=== PATIENT | female | born 1995 | race Caucasian/White ===

== ENCOUNTER 2017-02-26 22:59 | Emergency (ER) | payer BC ==
[~2017-02-26] VITALS: Wt 78.6 kg
[~2017-02-26 22:59] MED LIST: BIRTH CONTROL PO
[2017-02-27] MEDS ORDERED: IBUPROFEN 800 MG TAB PO ONE (01:00)
--- NOTE | 2017-02-27 01:18 | RADRPT ---
PROCEDURE: LEFT SHOULDER CLINICAL INDICATION: 21-year-old female with left shoulder pain. TECHNIQUE: Three views of the left shoulder were obtained. The images reviewed on a PACS workstati on. COMPARISON: None. FINDINGS: No evidence of fracture or dislocation is seen. The glenohumeral and acromioclavicular joint spaces appear preserved. Limited views of the clavicle and thorax are unremarkable. IMPRESSION: Unremarkable left shoulder radiographs. .Shay Castle MD, MD Date Time Electronically viewed and signed by .Shay Castle MD, MD on 02/27/2017 01:18 .M/
--- NOTE | 2017-02-27 01:46 | ERD ---
ER Documentation Chief Complaint Date/Time DATE: 02/27/17 TIME: 01:46 Chief Complaint l. shoulder pain s/p trauma HPI This is a 21-year-old female presents to the emergency department today complaining of left shoulder pain. Patient states that she is a caregiver and med tech at [employer] and was lifting a patient that got combative and patient pushed her shoulder backwards. States this happened on February 17. States she has reported this to her boss but nothing has been done. States that she had similar previous trauma last year and had seen a Worker's Comp. doctor. Denies any fevers or chills. ROS All systems reviewed and are negative except as per history of present illness. Medications Home Meds Active Scripts Acetaminophen* (Tylophen*) 500 Mg Capsule, 1 CAP PO Q6H Y for PAIN AND OR ELEVATED TEMP, #30 CAP Prov:JANNETH FORBES PA-C 02/27/17 Naproxen* (Naprosyn*) 500 Mg Tablet, 500 MG PO BID Y for PAIN AND/OR INFLAMMATION, #30 TAB Prov:JANNETH FORBES PA-C 02/27/17 Reported Medications [ Control ] No Conflict Check, PO DAILY 03/26/14 Allergies Allergies: Coded Allergies: No Known Allergy (Unverified , 03/26/14) PMhx/Soc Medical and Surgical Hx: pt denies Medical Hx History of Surgery: Yes (bunion removal) Anesthesia Reaction: No Hx Neurological Disorder: No Hx Respiratory Disorders: No Hx Cardiac Disorders: No Hx Psychiatric Problems: No Hx Miscellaneous Medical Probl: No Hx Alcohol Use: Yes Hx Substance Use: No Hx Tobacco Use: No Smoking Status: Never smoker Physical Exam Vitals Vital Signs Date Time Temp Pulse Resp B/P Pulse Ox O2 Delivery O2 Flow Rate FiO2 02/26/17 23:25 98.0 59 20 120/66 100 Physical Exam Const: No acute distress Head: Atraumatic Eyes: Normal Conjunctiva ENT: Normal External Ears, Nose and Mouth. Neck: Full range of motion..~ No meningismus. Resp: Clear to auscultation bilaterally Cardio: Regular rate and rhythm, no murmurs Skin: No petechiae or rashes MSK left shoulder with no obvious deformity. No effusion. No ecchymosis. Tenderness palpation over pack insertion and posterior aspect rotator cuff. Positive Morgan test. Pain with full active range of motion in internal rotation. Pulses 2+. Distal neurovascularly intact. Neur: Awake and alert Psych: Normal Mood and Affect Results 24 hrs Current Medications Medications (Trade) Dose Ordered Sig/Lacey Route PRN Reason Start Time Stop Time Status Last Admin Dose Admin Ibuprofen (Motrin) 800 mg ONCE ONCE PO 02/27/17 01:00 02/27/17 01:01 DC 02/27/17 01:09 DIAGNOSTIC IMAGING REPORT Patient: COLTEN CLARKE : 1995 Age: 21 Sex: F MR #: [id number] DOS: 02/27/17 0000 Ordering MD: JAUN AQUINO MD Location: [facility] Room/Bed: PROCEDURE: LEFT SHOULDER CLINICAL INDICATION: 21-year-old female with left shoulder pain. TECHNIQUE: Three views of the left shoulder were obtained. The images reviewed on a PACS workstation. COMPARISON: None. FINDINGS: No evidence of fracture or dislocation is seen. The glenohumeral and acromioclavicular joint spaces appear preserved. Limited views of the clavicle and thorax are unremarkable. IMPRESSION: Unremarkable left shoulder radiographs. .Shay Castle MD, MD Date Time Electronically viewed and signed by .Shay Castle MD, MD on 02/27/2017 01:18 .M/ CC: JAUN AQUINO. Procedures/MDM Is a 21-year-old female who presents to the emergency department today complaining of left shoulder pain after sustaining an injury while at work on February 17. I did have low suspicion for acute fracture dislocation however patient reported that she had had a previous similar injury and was concerned that there might be something else going on. I did offer to obtain x-rays for the patient Per the radiology report images of the left shoulder are unremarkable. There is no evidence of fracture dislocation. Glenohumeral and AC joint spaces appear preserved. Patient symptoms at this time is consistent with strain versus tendinitis versus internal derangement. I have explained this to the patient. I explained to the patient that she should follow-up with her work and primary care physician for referral to orthopedics and physical therapy as I feel that she would benefit from that. Patient was given Motrin here in the emergency department. She will be given a prescription for Naprosyn and Tylenol for home. At this time the patient is stable for discharge and outpatient management. Patient should follow up with their PCP in the next 1-2 days. They may return to the emergency department sooner for any persistent or worsening of symptoms. Patient understood and agreed with the plan. Departure Diagnosis: Primary Impression: Shoulder injury Encounter type: initial encounter Laterality: left Qualified Code: S49.92XA - Shoulder injury, left, initial encounter Condition: Fair JANNETH FORBES PA-C February 27, 2017 01:46
[2017-02-27] MEDS ORDERED: NAPR-260 PO (01:47)
[2017-02-27] MEDS ORDERED: ACET500C5 PO (01:47)
== END 2017-02-27 02:12 | disposition home or self-care (01) ==
LOC: FTE 22:59
DX: S49.92XA Unspecified injury of left shoulder and upper arm, initial encounter (principal); W50.2XXA Accidental twist by another person, initial encounter; Y92.9 Unspecified place or not applicable
CPT/HCPCS: 73030; 99283; Z7610